=== PATIENT | male | born 1965 | race Caucasian/White ===

== ENCOUNTER 2016-08-06 23:17 | Observation (INO) | payer BC ==
--- NOTE | ~2016-08-06 | PUL ---
[facility] [address] [place]. [address] NAME: SURINDER CÁRDENAS : 69 STATUS : DIS [place] PAT#: [id number] AGE: 51 ADM/REG DATE : 08/07/16 MR#: [id number] REPORT SERV DATE: 08/14/16 DICTATED BY: JOSUE BHATT DATE: 08/13/16 REPORT STATUS : Draft TRANSCRIBED BY: MODL DATE: 08/13/16 PULMONARY FUNCTION TEST Overnight pulse oximetry done on room air. Total recording time 07 hours 31 minutes, mean pulse is 75, mean oxygen saturation 94.5%. Time with an oxygen saturation less than 88%, 1 minute. INTERPRETATION: This is an overnight pulse oximetry, if there is concern for underlying sleep apnea, recommend overnight pulse oximetry; however, no hypoxia is noted during this study. HFQ/DANIELLE Josue Bhatt MD / [id number] CC: Benita Martínez M.D.
--- NOTE | ~2016-08-06 | DS ---
Discharge Summary [facility] [address] [facility] [place]. [address] NAME: SURINDER CÁRDENAS : 69 STATUS : DIS [place] PAT#: [id number] AGE: 51 ADM/REG DATE : 08/07/16 MR#: [id number] REPORT SERV DATE: 08/08/16 DICTATED BY: MIMI RIVAS ION DATE: 08/08/16 REPORT STATUS : Draft TRANSCRIBED BY: MODL DATE: 08/08/16 ADMISSION DATE: 08/07/2016 DISCHARGE DATE: 08/08/2016 DISCHARGE DIAGNOSES: 1. Hypothyroid, significantly under replaced? Compliance with medication and followup. His dose of Synthroid was increased with further management as an outpatient. 2. Confusion and "word-finding difficulty." Resolved at this moment. 3. Left side mastoiditis. Medical treatment taken to account that the patient had several rounds of antibiotics prior to this admission. Would probably recommend referral to the ENT if patient's condition does not improve. 4. Acute bronchitis and shortness of breath upon presentation. Resolved at this moment. 5. Osteoarthritis, weakness and dizziness. Controlled and resolved at this moment. DISCHARGE MEDICATIONS: The patient is going to be discharged home on Synthroid increased dose of 250 mcg p.o. daily, prednisone prescription on a slow-tapering schedule, Mucinex 600 mg p.o. q.i.d. over the counter with fluids. The patient to continue his Flonase nasal spray if the patient has at home, as well as a different antibiotic Ceftin 500 mg p.o. b.i.d. #14. No refills. Prescription written. PROCEDURE DURING THIS ADMISSION: 2D echo on 08/07/2016, showing ejection fraction 55%, mild diastolic dysfunction. No other significant abnormalities, (full report attached to the chart and discussed with the patient and family). MRA of the brain and MRA of the neck reported within normal limits, (note likely under development on the right intracranial MRA). Full report attached to the chart and discussed with the patient and family. Ammonia level 35. CTA of the chest showed no pulmonary embolism. Overall no acute chest abnormality. "Fatty liver seen," (full report attached to the chart and discussed with the patient and family). CT scan of the head/brain by preliminary report in the emergency room, shows "unremarkable CT scan of the brain," (full report attached to the chart and discussed with the patient and family). MRI of the brain on 08/07/2016, showed no acute infarct or bleed, and "marked the left mastoiditis" (full report attached to the chart and discussed with the patient and family). HISTORY OF PRESENT ILLNESS: For full details, please see history of present illness upon admission on 08/07/2016, by the Hospitalist Service. In summary, the patient is a pleasant 51-year-old white man with a history of hypothyroidism and history of osteoarthritis, who presented to the emergency room with multiple complaints including cough, shortness of breath, weak, dizzy, confusion with "difficulty finding words." Apparently, the patient had influenza and a strep throat, for which he took medications including Tamiflu and amoxicillin antibiotic. The patient has seen his primary care provider several times and because of failure to improve, he came to the emergency room. In the emergency room, initial evaluation showed a CT scan that was unremarkable and a CTA of the chest negative for pulmonary embolism. Therefore, the patient was admitted in the Hospitalist Service for further management and evaluation. HOSPITAL STAY AND EVOLUTION: The patient was admitted in the Hospitalist Service with the Discharge Summary [place] [id number] [place]. [address] NAME: SURINDER CÁRDENAS : 69 STATUS : DIS [place] PAT#: [id number] AGE: 51 ADM/REG DATE : 08/07/16 MR#: [id number] REPORT SERV DATE: 08/08/16 DICTATED BY: MIMI RIVAS DATE: 08/08/16 REPORT STATUS : Draft TRANSCRIBED BY: DANIELLE DATE: 08/08/16 above diagnosis of confusion, shortness of breath, difficulty finding words, possible TIA. He was monitored clinically under telemetry setting and with neurologic checks his condition steadily improved, and further treatment including starting steroids and antibiotics for his presumed acute bronchitis and shortness of breath. His condition steadily improved and he was able to be discharged home once he has reached maximum benefit from his hospital stay and treatment and therefore, he is medically stable for discharge. Please note, the written discharge note and discharge orders and instructions. CELESTINO/DANIELLE Mimi Rivas M.D. / [id number] CC: Benita Martínez M.D.
--- NOTE | ~2016-08-06 | HP ---
History And Physical [facility] [address] [facility] [place]. [address] NAME: SURINDER CÁRDENSA : 69 STATUS : ADM [place] PAT#: [id number] AGE: 51 ADM/REG DATE : 08/07/16 MR#: [id number] REPORT SERV DATE: 08/07/16 DICTATED BY: GINA YOUNG DATE: 08/07/16 REPORT STATUS : Draft TRANSCRIBED BY: MODL DATE: 08/07/16 DATE OF ADMISSION: 08/06/2016 POINT OF ENTRY: [facility] Emergency Department. PRIMARY CARE PHYSICIAN: Catherine Whitley M.D. CHIEF COMPLAINT: Shortness of breath, weakness, dizziness, cough, confusion. HISTORY OF PRESENT ILLNESS: Mr. Cárdenas is a 51-year-old gentleman, who has a history of hypothyroidism, who presents to the emergency room today with multiple complaints as listed above including cough, shortness of breath, weakness, dizziness, and confusion. The patient was in his usual state of health until about a month ago when he started to develop what he describes as the crud primarily being a cough with upper respiratory symptoms and congestion. He was diagnosed both with influenza as well as strep throat. He completed initial course of amoxicillin as well as Tamiflu without significant improvement in the patient's respiratory symptoms. He has since been seen by Dr. Whitley at least a few separate times for persistent cough with occasional sputum production. He reports that he has been given a course of oral steroids as well as a second round of antibiotics without any significant improvement in his cough-like symptoms. Beginning a few days ago, he started to develop additional symptoms including shortness of breath both at rest as well as while supine. He is unable to comment on any dyspnea on exertion as he has not exerted himself significantly over the last few days, but does deny any lower extremity edema. denies any known history of snoring or sleep apnea for the patient. The patient also reports some weakness as well as dizziness while ambulating and has also noted some intermittent episodes of confusion, primarily short-term memory difficulties, but also appears that sometimes he has trouble getting certain words out. During this time, he denies any recent fevers, chest pain, palpitations, abdominal pain, nausea, vomiting, diarrhea, constipation, dysuria, lower extremity edema, melena, hematochezia, or hemoptysis. They do note a lot of chills as well as profound night sweats as well as a change in his appearance and skin color. They have also reported some recent anorexia and poor oral intake and appetite. Initial evaluation in the emergency department notable for an EKG that was nonischemic. Labs were otherwise unremarkable for a mild elevation of his bilirubin level of 1.6. He was noted to be satting well on room air. Troponin was negative. CT scan of the brain was unremarkable. CT of the chest was negative for PE as well as any other pulmonary pathology. The patient was subsequently admitted to the Hospitalist Service for further evaluation and management. REVIEW OF SYSTEMS: Comprehensive review of systems otherwise negative, unless listed in history present illness. History And Physical [address] [address] NAME: SURINDER CÁRDENAS : 69 STATUS : ADM [place] PAT#: [id number] AGE: 51 ADM/REG DATE : 08/07/16 MR#: [id number] REPORT SERV DATE: 08/07/16 DICTATED BY: GINA YOUNG DATE: 08/07/16 REPORT STATUS : Draft TRANSCRIBED BY: DANIELLE DATE: 08/07/16 PREVIOUS MEDICAL HISTORY: 1. Hypothyroidism. 2. Osteoarthritis. SURGICAL HISTORY: C4-C7 anterior cervical diskectomy and fusion. ALLERGIES: CODEINE, MORPHINE, OXYCODONE, AND TRAMADOL. MEDICATIONS: Synthroid 250 mcg daily. SOCIAL HISTORY: He is a former smoker, but quit 30 some years ago. Denies alcohol. Denies illicits. He is retired corrections worker. FAMILY MEDICAL HISTORY: Mother with a history of breast cancer. Father with history of lung cancer. Siblings history is unknown. LABS AND IMAGIN. White count 7.4, hemoglobin 16.9, hematocrit 49.4, and platelet count 326. 2. Sodium is 139, potassium 3.9, chloride 103, carbon dioxide 25, BUN 16, creatinine 2.93, glucose is 109, calcium is 9.4, protein is 8.7, albumin is 4.4, bili is 1.6. ALT is 46, AST 20, alk phos is 89. 3. Troponin less than 0.02. 4. Lactic acid 0.7. 5. CT scan of the brain shows no acute intracranial abnormality. 6. CT of the chest shows no PE as well as no acute pulmonary pathology such as effusion and infiltrate as well as I do not appreciate on my review any evidence of emphysema. 7. EKG per my review shows normal sinus rhythm with occasional PVCs, otherwise no acute ischemia or infarction. PHYSICAL EXAMINATION: VITAL SIGNS: Temperature is 98.2 degrees Fahrenheit, pulse is 99, respirations 20, satting 96% on room air, blood pressure is 141/88. On recheck, he is satting 92% on room air, blood pressure 136/95. GENERAL: The patient is awake, alert, in no acute distress. Resting comfortably. He is an obese male with at bedside. HEENT: Atraumatic and normocephalic. Moist mucous membranes. Pupils equal, round, reactive to light and accommodation. Extraocular eye movements are intact. No scleral icterus. NECK: No jugular venous distention. No carotid bruits. CARDIAC: Regular rate and rhythm. No murmurs or gallops. Normal S1, S2. LUNGS: Not on oxygen in no respiratory distress. Speaking in full sentences. Does have some mild inspiratory rales and occasional rhonchi appreciated. ABDOMEN: Obese, soft, nontender, nondistended. Good bowel sounds. No rebound, guarding, or rigidity. EXTREMITIES: Warm, well perfused. No cyanosis, clubbing, or edema. SKIN: Warm and dry, but is moist to the touch. PSYCHIATRIC: Affect is appropriate. NEUROLOGIC: He is alert and oriented x3. Cranial nerves II through XII are grossly intact. History And Physical [address] [address] NAME: SURINDER CÁRDENAS : 69 STATUS : ADM [place] PAT#: [id number] AGE: 51 ADM/REG DATE : 08/07/16 MR#: [id number] REPORT SERV DATE: 08/07/16 DICTATED BY: GINA YOUNG DATE: 08/07/16 REPORT STATUS : Draft TRANSCRIBED BY: MODL DATE: 08/07/16 Speech is normal. Gait is not assessed. The patient does appear to have some difficulty telling me the events of the past month frequently referring to his for assistance with giving history as well as what appears to be some word-finding difficulty while answering some of my questions. ASSESSMENT AND PLAN: Mr. Cárdenas is a 51-year-old gentleman, who presents with multiple complaints including shortness of breath, confusion, cough, and weakness and so far with an unremarkable workup. PROBLEM LIST: 1. Shortness of breath with orthopnea. 2. Confusion and word-finding difficulty. 3. Cough. 4. Acute bronchitis. 5. Weakness. 6. Dizziness. PLAN: 1. Shortness of breath with orthopnea. He is not hypoxic. CT scan of the chest was unremarkable for PE or other pulmonary disease. We will check a BNP as well as echocardiogram as well as ambulatory and nocturnal oxygen saturations. 2. Cough and acute bronchitis. Given the patient's symptoms as well as my exam, I am concerned he still has some component of bronchitis, which could also be contributing to shortness of breath as listed above. We will empirically place him on some bronchitis type treatments and see if this improves, although already appears he has had at least one or two courses of outpatient treatment, which he seems to have failed. We will place the patient on steroids, antibiotics, DuoNebs as well as cough medicine and pulmonary toilet. 3. Confusion and word-finding difficulty. CT scan of the brain was unremarkable, but we will check a urinalysis, thyroid function studies, ammonia level, B12 as well as an MRI of the brain given his word-finding difficulties. Of note, there are no focal neurologic deficits at this time. 4. Weakness and dizziness, unclear etiology at this time. We are checking thyroid function studies, echocardiogram. We will also check orthostatic vital signs. 5. DVT prophylaxis. Lovenox subcu. CODE STATUS: The patient wishes to be full code. JCB/MODL Gina Young MD / [id number] History And Physical [address] [address] NAME: SURINDER CÁRDENAS : 69 STATUS : ADM [place] PAT#: [id number] AGE: 51 ADM/REG DATE : 08/07/16 MR#: [id number] REPORT SERV DATE: 08/07/16 DICTATED BY: GINA YOUNG DATE: 08/07/16 REPORT STATUS : Draft TRANSCRIBED BY: MODL DATE: 08/07/16 CC: Catherine Whitley M.D.
[2016-08-06 20:33] LABS: BASOPHILS 0.3 %; BASOPHILS ABSOLUTE 0.02 10/3/uL (0.0-0.16); EOSINOPHILS 0.1 %; EOSINOPHILS ABSOLUTE 0.01 10/3/uL (0.0-0.53); ER CBC TAT 0 Hrs 05 Mins; HEMOGLOBIN 16.9 g/dL (13.6-17.8); IMMATURE GRANULOCYTES 0.4 %; IMMATURE GRANULOCYTES ABSOLUTE 0.03 10/3/uL (0.0-0.11); LYMPHOCYTES 29.7 %; LYMPHOCYTES ABSOLUTE 2.21 10/3/uL (0.67-4.30); MEAN CORPUS HGB CONC 34.2 g/dL (32.0-36.0); MEAN CORPUSCULAR HEMOGLOB 30.5 pg (26.0-34.0); MEAN CORPUSCULAR VOLUME 89.2 fL (80-100); MEAN PLATELET VOLUME 9.4 fL (9.2-13.0); MONOCYTES 7.9 %; MONOCYTES ABSOLUTE 0.59 10/3/uL (0.21-1.20); NEUTROPHILS 61.6 %; NEUTROPHILS ABSOLUTE 4.58 10/3/uL (2.02-8.40); PLATELET COUNT 326 10/3/uL (150-400); RBC DISTRIBUTION WIDTH 12.7 % (12.0-16.0); RED CELL COUNT 5.54 10/6/uL (4.7-6.1); WHITE BLOOD CELLS 7.4 10/3/uL (4.5-10.5)
[2016-08-06 20:34] LABS: HEMATOCRIT 49.4 % (40.0-51.0); MANUAL DIFF NO %
[2016-08-06 20:48] LABS: ALBUMIN 4.4 G/DL (3.5-5.0); CALCIUM, SERUM 9.4 MG/DL (8.5-10.4); CHLORIDE, SERUM 103 MMOL/L (96-112); CO2 (CARBON DIOXIDE) 25 MMOL/L (24-34); CREATININE 0.93 MG/DL (0.70-1.30); GFR AFRICAN AMERICAN 111 ML/MIN (>=60); GFR NON AFRICAN AMERICAN 96 ML/MIN (>=60); GLUCOSE, SERUM 109 MG/DL (60-99); POTASSIUM, SERUM 3.9 MMOL/L (3.5-5.3); SGOT(AST) 20 U/L (5-40); SGPT(ALT) 46 U/L (5-65); SODIUM, SERUM 139 MMOL/L (135-148); TOTAL PROTEIN 8.7 G/DL (6.0-8.5)
[2016-08-06 20:50] LABS: ALKALINE PHOSPHATASE 89 U/L (45-117); BUN (BLOOD UREA NITROGEN) 16 MG/DL (6-23); GLOBULIN 4.3 G/DL (2.5-4.1); TOTAL BILIRUBIN 1.6 MG/DL (0-1.2)
[2016-08-07 01:08] LABS: TROPONIN I <0.02 NG/ML (<0.05)
[2016-08-07 02:25] LABS: TROPONIN I <0.02 NG/ML (<0.05)
[2016-08-07 02:44] LABS: PROCALCITONIN <0.05 ng/mL (<0.5)
[2016-08-07] MEDS ORDERED: SYNTHROID200 MCG PO (05:58)
[2016-08-07] MEDS ORDERED: AMOXIL500 MG PO (07:04)
[2016-08-07 08:23] LABS: ALLENS TEST Pos; BE (BASE EXCESS) -0.9 MEQ/L (0 +/- 2.5); CARBOXYHEMOGLOBIN 1.6 % (0-3); DEVICE NC; HCO3 (ACTUAL BICARBONATE) 21.2 MEQ/L (23-27); HEMOBLOGIN CONTENT 16.2 G/DL (14-18); INSTRUMENT SERIAL # 8087; METHEMOGLOBIN 0.3 % (0-3); O2 CONTENT 20.6 VOL% (18-24); OPERATOR ID 35188; PCO2 (CO2 TENSION) 29 MMHG (35-45); PO2 (O2 TENSION) 58 MMHG (79-93); SAMPLE Arterial; pH 7.48 (7.37-7.43)
[2016-08-07 08:48] LABS: AMMONIA 35 UMOL/L (11-32)
[2016-08-07 09:35] LABS: B NATRIURETIC PEPTIDE (BNP) < 2.0 PG/ML (< 100.0)
[2016-08-07 09:48] LABS: CPK 69 U/L (0-200); FREE T4 0.72 NG/DL (0.76-1.46); TROPONIN I <0.02 NG/ML (<0.05)
[2016-08-07 09:49] LABS: FOLATE 17.3 NG/ML (>5.2)
[2016-08-07 10:28] LABS: CK-MB 0.6 NG/ML
[2016-08-07 20:06] LABS: WBC (NOT ORDERED) (RFLEX) 0 (0-5)
[2016-08-07 20:31] LABS: ASCORBIC ACID (UR NOT ORDER) 40 (NEG); BILIRUBIN, URINE NEGATIVE (NEG); KETONE, URINE 20 MG/DL (NEG); LEUKOCYTE ESTERASE(NOT OR NEG (NEG)
[2016-08-08 07:27] LABS: AMPHETAMINES (NOT ORD) NEG (NEG); BARBITURATES (NOT ORDERED NEG (NEG); BENZODIAZEPINES (NOT ORD) NEG (NEG); CANNABINOIDS (THC) NEG (NEG); COCAINE (NOT ORDERED) NEG (NEG); OPIATES NEG (NEG); PHENCYCLIDINE(PCP) NEG (NEG); TRICYCLICS NEG (NEG)
[2016-08-08] MEDS ORDERED: SYN075 PO (16:30)
[2016-08-08] MEDS ORDERED: MUCINEX600 MG PO (16:31)
[2016-08-08] MEDS ORDERED: CEFT5 PO (16:32)
[2016-08-08] MEDS ORDERED: STERAPRED DS10 MG (16:33)
[2016-08-08] MEDS ORDERED: FLONASE NAS (16:38)
== END 2016-08-08 16:55 | disposition home or self-care (01) ==
LOC: ER 23:17 → CDU1 23:18
PROVIDERS: Emergency Medicine; Internal Medicine; Nurse Practitioner Acute Care
DX: E03.9 Hypothyroidism, unspecified (principal); M19.90 Unspecified osteoarthritis, unspecified site; Z98.1 Arthrodesis status; Z88.5 Allergy status to narcotic agent; Z87.891 Personal history of nicotine dependence; Z80.3 Family history of malignant neoplasm of breast; Z80.1 Family history of malignant neoplasm of trachea, bronchus and lung; H70.92 Unspecified mastoiditis, left ear; Z88.8 Allergy status to other drugs, medicaments and biological substances; Z91.011 Allergy to milk products; Z79.899 Other long term (current) drug therapy
CPT/HCPCS: 70450; 70544; 70547; 70551; 71275; 80053; 80305; 81001; 82140; 82550; 82553; 82607; 82746; 82805; 83605; 83880; 84145; 84439; 84443; 84484; 85025; 87040; 90686; 93005; 93306; 94640; 94762; 96372; 96374; 99285; A9270-GY; G0008; G0378; Q9967

== ENCOUNTER 2016-09-23 20:04 | Emergency (ER) | payer BC ==
[2016-09-23 19:44] LABS: BASOPHILS 0.7 %; BASOPHILS ABSOLUTE 0.06 10/3/uL (0.0-0.16); EOSINOPHILS 0.5 %; EOSINOPHILS ABSOLUTE 0.04 10/3/uL (0.0-0.53); ER CBC TAT 0 Hrs 05 Mins; HEMATOCRIT 45.6 % (40.0-51.0); HEMOGLOBIN 15.8 g/dL (13.6-17.8); IMMATURE GRANULOCYTES 0.2 %; IMMATURE GRANULOCYTES ABSOLUTE 0.02 10/3/uL (0.0-0.11); LYMPHOCYTES ABSOLUTE 2.14 10/3/uL (0.67-4.30); MEAN CORPUS HGB CONC 34.6 g/dL (32.0-36.0); MEAN CORPUSCULAR HEMOGLOB 31.2 pg (26.0-34.0); MEAN CORPUSCULAR VOLUME 89.9 fL (80-100); MEAN PLATELET VOLUME 9.4 fL (9.2-13.0); MONOCYTES ABSOLUTE 0.51 10/3/uL (0.21-1.20); NEUTROPHILS 67.6 %; NEUTROPHILS ABSOLUTE 5.78 10/3/uL (2.02-8.40); PLATELET COUNT 286 10/3/uL (150-400); RBC DISTRIBUTION WIDTH 12.7 % (12.0-16.0); RED CELL COUNT 5.07 10/6/uL (4.7-6.1); WHITE BLOOD CELLS 8.6 10/3/uL (4.5-10.5)
[2016-09-23 19:45] LABS: MANUAL DIFF NO %
[2016-09-23 19:58] LABS: A/G RATIO 1.1 (0.7-1.9); ALBUMIN 4.1 G/DL (3.5-5.0); ALKALINE PHOSPHATASE 80 U/L (45-117); CHLORIDE, SERUM 104 MMOL/L (96-112); CO2 (CARBON DIOXIDE) 27 MMOL/L (24-34); CREATININE 0.87 MG/DL (0.70-1.30); GFR AFRICAN AMERICAN 117 ML/MIN (>=60); GFR NON AFRICAN AMERICAN 101 ML/MIN (>=60); GLOBULIN 3.6 G/DL (2.5-4.1); GLUCOSE, SERUM 99 MG/DL (60-99); POTASSIUM, SERUM 4.1 MMOL/L (3.5-5.3); SGOT(AST) 42 U/L (5-40); SGPT(ALT) 102 U/L (5-65); SODIUM, SERUM 139 MMOL/L (135-148); TOTAL PROTEIN 7.7 G/DL (6.0-8.5)
[2016-09-23 19:59] LABS: BUN (BLOOD UREA NITROGEN) 12 MG/DL (6-23); TOTAL BILIRUBIN 0.9 MG/DL (0-1.2)
[~2016-09-23 20:04] MED LIST: AMOXIL500 MG PO; CEFT5 PO; FLONASE NAS; MUCINEX600 MG PO; STERAPRED DS10 MG; SYN075 PO; SYNTHROID200 MCG PO
[2016-09-23 20:30] LABS: ULTRASENSITIVE TSH 0.496 MCIU/ML (0.358-3.740)
== END 2016-09-23 21:40 | disposition home or self-care (01) ==
LOC: ER 20:04
PROVIDERS: Specialist
DX: R10.11 Right upper quadrant pain (principal); Z88.5 Allergy status to narcotic agent; Z88.8 Allergy status to other drugs, medicaments and biological substances; Z79.52 Long term (current) use of systemic steroids; Z79.899 Other long term (current) drug therapy
CPT/HCPCS: 80053; 84443; 85025; 96374; 99284; J1885

== ENCOUNTER 2016-09-27 01:34 | Observation (INO) | payer BC ==
--- NOTE | ~2016-09-27 | HP ---
History And Physical [place] [id number] [facility] [place]. [address] NAME: SURINDER CÁRDENAS : 69 STATUS : ADM [place] PAT#: [id number] AGE: 51 ADM/REG DATE : 09/27/16 MR#: [id number] REPORT SERV DATE: 09/27/16 DICTATED BY: NEGIN JAMISON DATE: 09/27/16 REPORT STATUS : Draft TRANSCRIBED BY: MODBrittani DATE: 09/27/16 DATE OF ADMISSION: 09/27/2016 CHIEF COMPLAINT: Chest heaviness. HISTORY OF PRESENT ILLNESS: A very pleasant, 51-year-old, white gentleman with no known history of CAD, states that on 09/26/2016 around 2300 hours while watching TV, he developed left-sided chest heaviness that radiated to his left arm. He reports associated shortness of breath and diaphoresis. Denies any nausea, dizziness, or belching. At its most intense, he rates the chest discomfort a 3/10. At time of interview in the [facility], he is pain free. The episode lasted several minutes in duration. EMS was called. His symptoms were relieved with aspirin and nitroglycerin x2, provided by EMS staff. He describes this as a single event. No previous episodes. There is no exertional component described. He denies eating dinner meal. The patient denies any personal history of myocardial infarction, stroke, DVT, or pulmonary embolus. The patient recently treated for the flu, 07/2016. Denies palpitations. No syncopal episodes. Denies PND or orthopnea. The patient states he underwent a sleep study recently but did not receive any report. Sleep study performed on 08/14/2016 revealed no hypoxia noted during this study. PAST MEDICAL HISTORY: Hypothyroidism on replacement. SURGICAL HISTORY: 1. Two cervical fusions. 2. Arthroscopic repair of left knee. 3. Repair of a left ankle fracture and cholecystectomy. SOCIAL HISTORY: He is with four children. He is retired from the [employer]. He does not have an exercise routine. Denies tobacco, alcohol, or illicit's. FAMILY HISTORY: No embolic events reported in first-degree relatives. REVIEW OF SYSTEMS: Fourteen-point review of systems performed, significant for HPI. No other contributory diagnoses identified. ALLERGIES: MORPHINE, NAUSEA AND VOMITING. CODEINE, NAUSEA AND VOMITING. HYDROCODONE, NAUSEA AND VOMITING. LACTOSE INTOLERANCE. TRAMADOL, NAUSEA AND VOMITING. HOME MEDICATIONS: Levothyroxine 150 mcg daily. PHYSICAL EXAMINATION: VITAL SIGNS: Bilateral blood pressures on arrival, right 130/75, left 131/70, pulse 77, respirations 18, temperature 98.0, O2 saturation 97% on room air, height 6 feet 0 inches, History And Physical [address] [address] NAME: SURINDER CÁRDENAS : 69 STATUS : ADM [place] PAT#: [id number] AGE: 51 ADM/REG DATE : 09/27/16 MR#: [id number] REPORT SERV DATE: 09/27/16 DICTATED BY: NEGIN JAMISON DATE: 09/27/16 REPORT STATUS : Draft TRANSCRIBED BY: DANIELLE DATE: 09/27/16 weight 274 pounds, BMI 37. GENERAL: Cooperative, in no apparent distress. HEENT: Pupils 2 mm, sclera nonicteric. Nares patent. Moist mucous membranes. No xanthelasma. NECK: Trachea midline, no thyromegaly. No JVD. No bruits. LYMPH: No cervical lymphadenopathy. No supraclavicular lymphadenopathy. RESPIRATORY: Unlabored respirations. Breath sounds clear bilaterally to posterior auscultation. No wheezes or rhonchi. CARDIOVASCULAR: Regular rate. No murmur, rub or gallop appreciated. Extremities without edema. Pulses 2+ bilaterally. ABDOMEN: Obese, soft, nontender, nondistended, normal bowel sounds auscultated throughout. No organomegaly. SKIN: Warm, dry extremities. No pallor, or cyanosis. PSYCHIATRIC: Appropriate affect. Alert, oriented x3. LABORATORY DATA: Troponin less than 0.02 x3. Potassium 3.7 (previously 3.3), BUN 16, creatinine 0.86, glucose 92. WBC 9.2, hemoglobin 14.9, hematocrit 42.3, platelet count 289,000. EKG, sinus rhythm. Echo, 07/2016: EF 55%. ASSESSMENT AND PLAN: 1. Chest pain with atypical features. The patient has been observed in the CPOU overnight to rule out myocardial infarction with serial enzymes and serial EKGs and held n.p.o. We will proceed with exercise treadmill today which may be converted to nuclear imaging if warranted. The patient will be discharged home if low risk, no ischemia. If anything suggestive of ischemia, Cardiology referral will be initiated. Otherwise, the patient will be asked to follow up with his PCP in one to two weeks with all studies being sent to that office. 2. Hypokalemia, repleted per protocol, now 3.7. 3. Obesity. Diet and exercise choices discussed. APRYL/MODL SARAH Lerner, [employer]-BC / [id number] CC: SARAH Lerner, [employer]-BC Catherine Whitley M.D.
[2016-09-27 02:45] LABS: BASOPHILS 0.7 %; BASOPHILS ABSOLUTE 0.06 10/3/uL (0.0-0.16); EOSINOPHILS 0.3 %; EOSINOPHILS ABSOLUTE 0.03 10/3/uL (0.0-0.53); ER CBC TAT 0 Hrs 07 Mins; HEMATOCRIT 42.3 % (40.0-51.0); HEMOGLOBIN 14.9 g/dL (13.6-17.8); IMMATURE GRANULOCYTES 0.3 %; IMMATURE GRANULOCYTES ABSOLUTE 0.03 10/3/uL (0.0-0.11); LYMPHOCYTES 30.1 %; LYMPHOCYTES ABSOLUTE 2.76 10/3/uL (0.67-4.30); MEAN CORPUS HGB CONC 35.2 g/dL (32.0-36.0); MEAN CORPUSCULAR HEMOGLOB 31.4 pg (26.0-34.0); MEAN CORPUSCULAR VOLUME 89.1 fL (80-100); MEAN PLATELET VOLUME 9.4 fL (9.2-13.0); MONOCYTES ABSOLUTE 0.73 10/3/uL (0.21-1.20); NEUTROPHILS 60.6 %; NEUTROPHILS ABSOLUTE 5.55 10/3/uL (2.02-8.40); PLATELET COUNT 289 10/3/uL (150-400); RBC DISTRIBUTION WIDTH 12.2 % (12.0-16.0); RED CELL COUNT 4.75 10/6/uL (4.7-6.1); WHITE BLOOD CELLS 9.2 10/3/uL (4.5-10.5)
[2016-09-27 02:46] LABS: MANUAL DIFF NO %
[2016-09-27 02:52] LABS: INTERNATIONAL NORMAL RATI 1.1 UNITS (-); PARTIAL THROMBO TIME 32.5 SEC (22.5-37.2); PROTIME (NOT ORD) 13.7 SEC (12.0-14.5)
[2016-09-27 03:02] LABS: ALKALINE PHOSPHATASE 72 U/L (45-117); BUN (BLOOD UREA NITROGEN) 16 MG/DL (6-23); CALCIUM, SERUM 8.7 MG/DL (8.5-10.4); CHEST PAIN PROFILE TAT 0 Hrs 24 Mins; CHLORIDE, SERUM 105 MMOL/L (96-112); CO2 (CARBON DIOXIDE) 25 MMOL/L (24-34); CREATININE 0.86 MG/DL (0.70-1.30); DIRECT BILIRUBIN 0.1 MG/DL (0.0-0.4); GFR AFRICAN AMERICAN 118 ML/MIN (>=60); GFR NON AFRICAN AMERICAN 102 ML/MIN (>=60); GLUCOSE, SERUM 92 MG/DL (60-99); INDIRECT BILIRUBIN(NOT ORDER) 0.7 MG/DL (0.1-0.9); POTASSIUM, SERUM 3.3 MMOL/L (3.5-5.3); SGOT(AST) 29 U/L (5-40); SGPT(ALT) 69 U/L (5-65); SODIUM, SERUM 142 MMOL/L (135-148); TOTAL BILIRUBIN 0.8 MG/DL (0-1.2); TOTAL PROTEIN 7.4 G/DL (6.0-8.5); TROPONIN I <0.02 NG/ML (<0.05)
[2016-09-27 07:51] LABS: POTASSIUM, SERUM 3.7 MMOL/L (3.5-5.3); TROPONIN I <0.02 NG/ML (<0.05)
== END 2016-09-27 12:16 | disposition home or self-care (01) ==
LOC: ER 01:34 → CDU1 03:51 → CDU2 04:05
PROVIDERS: Clinical Nurse Specialist; Specialist
DX: R07.89 Other chest pain (principal); E87.6 Hypokalemia; E66.9 Obesity, unspecified; E03.9 Hypothyroidism, unspecified; Z98.1 Arthrodesis status; Z90.49 Acquired absence of other specified parts of digestive tract; Z98.890 Other specified postprocedural states; Z88.5 Allergy status to narcotic agent; Z88.8 Allergy status to other drugs, medicaments and biological substances; Z79.899 Other long term (current) drug therapy; Z68.37 Body mass index [BMI] 37.0-37.9, adult
CPT/HCPCS: 71010; 80048; 80076; 83735; 84132; 84484; 85025; 85610; 85730; 93005; 93017; 99285; A9270-GY; G0378

== ENCOUNTER 2016-10-03 02:16 | Emergency (ER) | payer BC ==
[2016-10-03 02:21] LABS: BASOPHILS 0.5 %; BASOPHILS ABSOLUTE 0.04 10/3/uL (0.0-0.16); EOSINOPHILS 0.7 %; EOSINOPHILS ABSOLUTE 0.06 10/3/uL (0.0-0.53); ER CBC TAT 0 Hrs 04 MinsNP; HEMOGLOBIN 15.5 g/dL (13.6-17.8); IMMATURE GRANULOCYTES 0.2 %; IMMATURE GRANULOCYTES ABSOLUTE 0.02 10/3/uL (0.0-0.11); LYMPHOCYTES 34.7 %; LYMPHOCYTES ABSOLUTE 3.02 10/3/uL (0.67-4.30); MANUAL DIFF NO %; MEAN CORPUS HGB CONC 35.2 g/dL (32.0-36.0); MEAN CORPUSCULAR HEMOGLOB 31.6 pg (26.0-34.0); MEAN CORPUSCULAR VOLUME 89.6 fL (80-100); MEAN PLATELET VOLUME 9.4 fL (9.2-13.0); MONOCYTES 9.2 %; NEUTROPHILS 54.7 %; NEUTROPHILS ABSOLUTE 4.76 10/3/uL (2.02-8.40); PLATELET COUNT 329 10/3/uL (150-400); RBC DISTRIBUTION WIDTH 12.5 % (12.0-16.0); RED CELL COUNT 4.91 10/6/uL (4.7-6.1); WHITE BLOOD CELLS 8.7 10/3/uL (4.5-10.5)
[2016-10-03 02:30] LABS: D-DIMER QUANTITATIVE 0.34 ug/mLFEU (< 0.50)
[2016-10-03 02:45] LABS: A/G RATIO 1.1 (0.7-1.9); ALBUMIN 4.1 G/DL (3.5-5.0); ALKALINE PHOSPHATASE 75 U/L (45-117); BUN (BLOOD UREA NITROGEN) 13 MG/DL (6-23); CALCIUM, SERUM 9.1 MG/DL (8.5-10.4); CHLORIDE, SERUM 106 MMOL/L (96-112); CO2 (CARBON DIOXIDE) 27 MMOL/L (24-34); CREATININE 0.94 MG/DL (0.70-1.30); GFR AFRICAN AMERICAN 110 ML/MIN (>=60); GFR NON AFRICAN AMERICAN 95 ML/MIN (>=60); GLOBULIN 3.8 G/DL (2.5-4.1); GLUCOSE, SERUM 93 MG/DL (60-99); POTASSIUM, SERUM 3.4 MMOL/L (3.5-5.3); SGOT(AST) 19 U/L (5-40); SGPT(ALT) 54 U/L (5-65); SODIUM, SERUM 143 MMOL/L (135-148); TOTAL BILIRUBIN 0.9 MG/DL (0-1.2); TOTAL PROTEIN 7.9 G/DL (6.0-8.5); TROPONIN I <0.02 NG/ML (<0.05)
[2016-10-03 02:46] LABS: ULTRASENSITIVE TSH 0.216 MCIU/ML (0.358-3.740)
[2016-10-03 03:04] LABS: SED RATE 6 MM/HR (0-15)
[2016-10-03 03:14] LABS: ASCORBIC ACID (UR NOT ORDER) NEG (NEG); BILIRUBIN, URINE NEGATIVE (NEG); ER URINALYSIS TAT 0 Hrs 16 Mins; KETONE, URINE TRACE MG/DL (NEG); LEUKOCYTE ESTERASE(NOT OR NEG (NEG); NITRITE (URINE) NEG (NEG); WBC (NOT ORDERED) (RFLEX) 3 (0-5)
== END 2016-10-03 04:11 | disposition home or self-care (01) ==
LOC: ER 02:16
PROVIDERS: Nurse Practitioner Acute Care
DX: E86.0 Dehydration (principal); R53.83 Other fatigue; R10.11 Right upper quadrant pain; E03.9 Hypothyroidism, unspecified; Z87.891 Personal history of nicotine dependence; Z88.5 Allergy status to narcotic agent; Z88.8 Allergy status to other drugs, medicaments and biological substances; Z79.899 Other long term (current) drug therapy
CPT/HCPCS: 71010; 80053; 81001; 83690; 84443; 84484; 85025; 85379; 85652; 86308; 93005; 99285